=== PATIENT | female | born 1950 ===

== ENCOUNTER 2019-07-09 10:19 | Outpatient (RCR) | payer MEDICARE, SELFPAY | END 2019-07-12 23:59 | disposition home or self-care (01) | LOC: WOUND 10:19 | PROVIDERS: Visit Provider Thoracic Surgery (Cardiothoracic Vascular Surgery) | DX: L89.152 Pressure ulcer of sacral region, stage 2 (principal) | CPT/HCPCS: 11042; 99203; 99212 ==